=== PATIENT | male | born 1980 | race Two or more races ===

== ENCOUNTER 2017-10-21 18:11 | Emergency (ER) | payer SELFPAY ==
[~2017-10-21] VITALS: Ht 170.2 cm; Wt 77.1 kg
--- NOTE | 2017-10-21 18:41 | Emergency Room Report ---
History of Present Illness General Chief Complaint: Lower Extremity Injury Source: Patient Present Illness HPI 37-year-old male patient presents ER complaining of laceration on his right ankle. Reports that he was at work earlier today was using a saw when it fell out of his hands and asked only cut his right ankle. Reports bleeding well controlled, non-pulsating. Denies loss of sensation. Reports up-to-date on tetanus vaccinations. reports using cane to help with ambulation due to pain symptoms. Allergies: Coded Allergies: No Known Allergies (Unverified , 10/21/17) Patient History Past Medical History: see triage record Reviewed Nursing Documentation: PMH: Agreed; PSxH: Agreed Nursing Documentation-PMH Past Medical History: No Stated History Review of Systems All Other Systems: negative except mentioned in HPI Physical Exam Vital Signs Date Time Temp Pulse Resp B/P (MAP) Pulse Ox O2 Delivery O2 Flow Rate FiO2 10/21/17 18:25 98.4 67 14 122/80 100 Room Air 98.4 Sp02 EP Interpretation: reviewed, normal General Appearance: well appearing, no apparent distress, alert, GCS 15, non- toxic Head: normocephalic, atraumatic Eyes: bilateral eye normal inspection, bilateral eye PERRL ENT: hearing grossly normal, normal pharynx, no angioedema, normal voice, uvula midline, moist mucus membranes Neck: full range of motion Respiratory: lungs clear, normal breath sounds, no rhonchi, no respiratory distress, no accessory muscle use, no wheezing, speaking full sentences Cardiovascular #1: regular rate, rhythm, no edema Cardiovascular #2: 2+ dorsalis pedis (R), 2+ dorsalis pedis (L) Genitourinary: no CVA tenderness Musculoskeletal: back normal, digits/nails normal, gait/station normal, normal range of motion, other - NVI, tender - right ankle at site of laceration Neurologic: alert, oriented x3, responsive, motor strength/tone normal, sensory intact Skin: laceration - 3 cm laceration on medial right ankle distal to the malleolus, no active bleeding, surrounding erythema or edema, sensation intact to light touch Procedures Laceration/Wound Repair Laceration/Wound Repair : Consent: Verbal Wound Location: lower extremity Wound's Depth, Shape: superficial Wound Length (cm): 3 Wound Explored: contaminated Irrigated w/ Saline (ccs): 10 Betadine Prep?: Yes Anesthesia: 1% Lidocaine Wound Debrided: extensive Wound Repaired With: sutures Suture Size/Type: 4:0, proline Number of Sutures: 3 Layer Closure?: No Sterile Dressing Applied?: Yes Splint Applied?: No Sling Applied?: No Patient Tolerated: Well Complications: None Medical Decision Making PA Attestation Dr. Downs is my supervising Physician whom patient management has been discussed with. Diagnostic Impression: Primary Impression: Laceration ER Course Pt presents to ED c/o laceration on right ankle. DDX considered but are not limited to laceration, abrasion, contusion, cellulitis. VITAL SIGNS are WNL, patient is afebrile ED INTERVENTIONS: Offered patient x-ray of foot and ankle due to pain symptoms with ambulation, patient declined, states he does not believe it is fractured or sprained, does not want x-ray performed at this time. patient declined pain medication. Wound was cleaned and irrigated using normal saline. Local block using Lidocaine 1%. Laceration repaired. 3 sutures placed. Wound cleaned and covered using sterile dressing and Bacitracin. patient tolerated procedure well without complications. Patient reports understanding and agreement to treatment plan. Keep wound clean and dry. RICE: rest, ice, compression, elevation of ankle. Declined crutches. Take Tylenol for pain. DISCHARGE: Rx provided for bacitracin At this time pt is stable for d/c to home. Patient resting comfortably, in no acute distress, nontoxic appearing, talking without difficulty. Will provide with patient care instructions and any necessary prescriptions. Patient to take medication as instructed. Care plan and follow-up instructions provided. Work note provided to patient. Patient questions asked and answered. Patient instructed to follow-up with primary care provider in 1-3 days for wound check and 7-10 days for removal of sutures ER precautions given. Patient instructed to return to ER immediately for any new or worsening of symptoms. - Please note that this Emergency Department Report was dictated using [employer] entry operator technology software, occasionally this can lead to erroneous entry secondary to interpretation by the dictation equipment. Last Vital Signs Date Time Temp Pulse Resp B/P (MAP) Pulse Ox O2 Delivery O2 Flow Rate FiO2 10/21/17 18:25 98.4 67 14 122/80 100 Room Air 98.4 Disposition: HOME, SELF-CARE Condition: Stable Scripts Bacitracin/Polymyxin B Sulfate (BACITRACIN-POLYMYXIN OINTMENT) 28.35 Gm Oint...g. 1 APPLIC TP BID, #28 GM Prov: Parminder Feldman 10/21/17 Patient Instructions: Laceration Care, Adult, Rmri-by-Umgs, Foot Contusion Additional Instructions: Patient instructed to follow-up with primary care provider in 1-3 days for wound check and 7-10 days for removal of sutures. Take medications as directed. RICE: rest, ice, compression, elevation. Tylenol for pain. Keep wound clean and dry. Patient questions asked and answered. ER precautions given, patient instructed to return to ER immediately for any new or worsening of symptoms. Parminder Feldman Oct 21, 2017 18:41
[2017-10-21] MEDS ORDERED: Bacitracin Oint UD TOPIC ONE (18:45)
[2017-10-21] MEDS ORDERED: Lidocaine 1% Plain 30 ml INJ ONE (18:45)
[2017-10-21] MEDS ORDERED: Ketorolac 30mg Inj IM ONE (18:45)
[2017-10-21] MEDS ORDERED: BACITRACIN-P28.35 GM TP (19:09)
[2017-10-21 19:43] VITALS: BP 130/76
== END 2017-10-21 19:43 | disposition home or self-care (01) ==
LOC: EMR 18:45
DX: S91.011A Laceration without foreign body, right ankle, initial encounter (principal); W31.2XXA Contact with powered woodworking and forming machines, initial encounter; Y93.89 Activity, other specified; Y92.89 Other specified places as the place of occurrence of the external cause; Y99.0 Civilian activity done for income or pay
CPT/HCPCS: 12032; 99283; J2001; 96372